=== PATIENT | female | born 1960 | race Caucasian/White ===

== ENCOUNTER 2019-11-05 07:31 | Emergency (ER) | payer BC ==
[~2019-11-05] VITALS: Ht 175.3 cm; Wt 102.1 kg
[2019-11-05 07:50] VITALS: BP 164/86
--- NOTE | 2019-11-05 08:06 | PHYS DOC ---
Past Medical History Additional Information: nonsmoker Adult General Chief Complaint Chief Complaint: OTHER COMPLAINTS HPI HPI Patient is a 59-year-old female with a past medical history of diverticulitis that had a partial colon resection with re-anastomosis on October 17 that is presenting to the emergency department with wound dehiscence of her surgical wound. Patient states that she was standing up from a sitting position yesterday when she felt the proximal portion of her wound open, she didn't do anything about it and because it was still well controlled but this morning it opened more and is draining serosanguineous fluid. Patient denies fever, chills, nausea, vomiting, chest pain, shortness of breath, abdominal pain, constipation, and diarrhea. Patient denies any trauma. Pt states that there have been no complications postop for her procedure. Review of Systems Review of Systems Constitutional: Denies fever or chills Eyes: Denies redness or eye pain HENT: Denies nasal congestion or sore throat Respiratory: Denies cough or shortness of breath Cardiovascular: Denies chest pain or palpitations GI: Denies abdominal pain, nausea, or vomiting : Denies dysuria or hematuria Musculoskeletal: Denies back pain or joint pain Integument: Denies rash or skin lesions Neurologic: Denies headache, focal weakness or sensory changes Complete systems were reviewed and found to be within normal limits, except as documented in this note. Current Medications Current Medications Current Medications Medications (Trade) Dose Ordered Sig/[facility] Start Time Stop Time Status Last Admin Dose Admin Lidocaine/ Epinephrine (LIDOCAINE 2%-EPI 1:100,000 multi-dose) 20 ml 1X ONCE 11/05/19 08:30 11/05/19 08:31 DC 11/05/19 08:12 20 ML Neomycin/ Polymyxin/ Bacitracin (Triple Antibiotic Ointment) 1 pkt 1X ONCE 11/05/19 08:30 11/05/19 08:31 DC 11/05/19 08:12 1 PKT Allergies Allergies Allergies Coded Allergies Type Severity Reaction Last Updated Verified No Known Drug Allergies 11/05/19 No Physical Exam Physical Exam Constitutional: Well developed, well nourished, no acute distress, non-toxic appearance HENT: Normocephalic, atraumatic, oropharynx moist Eyes: Conjunctiva normal, no discharge Neck: Normal range of motion, no tenderness, supple Cardiovascular: Heart rate normal, regular rhythm Lungs & Thorax: Bilateral breath sounds clear to auscultation, no wheezing Abdomen: Soft, no tenderness, 10cm midline incision with the proximal 5cm opened 2cm wide, fascia intact, serosanginous drainage present, no erythema or pus draining Skin: Warm, dry, no erythema, no rash Back: No tenderness, no CVA tenderness Extremities: No tenderness, ROM intact, no edema Neurologic: Alert and oriented X 3, no focal deficits noted Psychologic: Affect normal, judgement normal, mood normal Current Patient Data Vital Signs Vital Signs Date Time Temp Pulse Resp B/P (MAP) Pulse Ox O2 Delivery O2 Flow Rate FiO2 11/05/19 07:50 98.1 62 14 164/86 (112) 97 Room Air 98.1 EKG EKG [] Radiology/Procedures Radiology/Procedures [] Course & Med Decision Making Course & Med Decision Making Patient is a 59-year-old female with past medical history of partial colon resection with reanastomosis on October 17 that is present emergency department with wound dehiscence of her surgical scar. Patient was seen and evaluated at bedside. Patient states that the wound opened up yesterday and opened up more this morning, she denies any fever or systemic symptoms at home, she denies any drainage from the wound. Wound closed with 4-0 nylon, horizontal mattress and simple interrupted sutures, patient tolerated well. Patient stable for discharge with outpatient follow-up with PCP. Discussed findings and plan with patient and family, who acknowledge understanding and agreement. Dragon Disclaimer Dragon Disclaimer This electronic medical record was generated, in whole or in part, using a voice recognition dictation system. Laceration/Wound Repair Laceration/Wound Repair : Wound Location: abdomen Wound's Depth, Shape: superficial Wound Length (cm): 5 Wound Explored: clean Irrigated w/ Saline (ccs): 100 Betadine Prep?: No Volume Anesthetic (ccs): 10 Wound Debrided: minimal Wound Repaired With: sutures Suture Size/Type: 4:0 Number of Sutures: 8 Layer Closure?: No Sterile Dressing Applied?: Yes Splint Applied?: No Sling Applied?: No Progress Verbal consent obtained. Time out performed. Hand hygiene utilized. Wound cleaned with ChloraPrep. Anesthesia obtained via a 25-gauge hypodermic needle with (10) mL's of lidocaine 2% with epi. Copious irrigation performed. Wound well approximated with 7 horizontal mattress and 1 simple interrupted 4-0 nylon sutures. Patient tolerated procedure well and without difficulty. Empiric antibiotic ointment applied prior to sterile dressing. Departure Departure Impression: Primary Impression: Wound dehiscence Disposition: 01 HOME, SELF-CARE Condition: STABLE Referrals: NO PCP (PCP) Patient Instructions: Sutured Wound Care, [id number], Wound Dehiscence, Ea sy-to-Read Additional Instructions: Do not soak your wound. You may shower. Clean wound daily with soap and water. Change dressing 2 times daily. Use over the counter antibiotic ointment with each dressing change. Sutures need to be removed in 7 days. Present to your family doctor or local urgent care for removal. You may also present to the ED but it will be an additional visit/charge. After suture removal you may use Vitamin E ointment to soften the wound and prevent scarring. XUAN HEART DO Nov 05, 2019 08:06
[2019-11-05] MEDS ORDERED: LIDOCAINE 2%/EPI 1:100,000 20 ML VIAL. IJ ONE (08:30)
[2019-11-05] MEDS ORDERED: NEOMY/BACITR/POLYMYXIN OINT PACKET. TP ONE (08:30)
== END 2019-11-05 08:52 | disposition home or self-care (01) ==
LOC: ER 07:31
DX: T81.33XA Disruption of traumatic injury wound repair, initial encounter (principal); Y04.8XXA Assault by other bodily force, initial encounter; Y93.89 Activity, other specified; Y92.89 Other specified places as the place of occurrence of the external cause; Y99.8 Other external cause status
CPT/HCPCS: 12020; 99284; J3490